=== PATIENT | male | born 1965 | race Caucasian/White ===

== ENCOUNTER → 2016-07-14 | Outpatient (CLI) | payer OTHER ==
--- NOTE | ~2016-07-14 | MR113 ---
[facility] A Service of [facility] RADIOLOGY TEXT RESULTS PATIENT: DESTINEE PAREKH [facility] : 63 UNIT #: [id number] AGE: [address]: Coretta Elizondo MD SEX: M ORDER DR: [id number] [facility] [address] [place], [place] [address] [id number] O MR#: [id number] Acc #: [id number] NAME: DESTINEE PAREKH : 1965 SEX: M STUDY DATE/TIME: 07/14/2016 18:00 UNIT: [facility] ROOM: STUDY DESCRIPTION: MR Lumbar Wo Contrast Attending Physician: Coretta Elizondo M.D. Referring Physician: Coretta Elizondo M.D. Ordering Physician: Coretta Elizondo M.D. Primary Care Physician: Coretta Elizondo M.D. MRI CENTER REPORT This report is preliminary unless electronic signature is present. EXAM Lumbar spine MRI without HISTORY L4 nerve root compression. Low back pain 2 years. Cannot walk more than 50 feet without intense pain per patient. No known injury. Patient complains of burning and tingling into both thighs. COMMENT MRI of the lumbar spine performed without contrast using routine 1.5T imaging technique. No previous. There is about 6.0 mm of degenerative retrolisthesis of L5 on S1 secondary to loss of intervertebral disc height. The intervertebral discs are desiccated in general and there is severe loss of disc height at the L5-S1 level with some [id number] predominately type 1 marrow endplate degenerative change. Multiple small Schmorl's nodes are seen, milder loss of intervertebral disc height otherwise. The conus medullaris terminates at L1-2 and is normal. At L1-2, there is mild facet degenerative change on the left. There is a minor concentric disc bulge with a more focal component to the left side posterolaterally. There is no central canal stenosis. There is mild left inferior foraminal narrowing. At L2-3, there is mild facet degenerative change bilaterally. Mild concentric disc bulge with minimal inferior foraminal narrowing and no canal stenosis. At L3-4, mild concentric disc bulge. Mild facet hypertrophy. Mild effacement of the anterior thecal sac. Mild mass effect on left greater STS. [facility] A Service of [facility] RADIOLOGY TEXT RESULTS PATIENT: DESTINEE PAREKH LOCATION: [facility] : 63 UNIT #: [id number] AGE: [address]: Coretta Elizondo MD SEX: M ORDER DR: than right lateral recess and central canal stenosis. Only minor inferior foraminal narrowing. At L4-5, there is mild bilateral facet degenerative change. Minor concentric disc bulge with a small focal central protrusion component and annular fissure. Mild central canal stenosis. Subtle mass effect on the bilateral-lateral recesses. Minor inferior foraminal narrowing. At L5-S1, [id number] facet degenerative change bilaterally, concentric moderate desiccated disc bulging with a superimposed anterior extrusion and essentially broad posterior protrusion/extrusion. This is more prominent to the left than the right of midline posteriorly and extends into the inferior foramina bilaterally. There is oqxs-wa-farcrcgt right, ivqbqpnl-ay-nwcwzx left side foraminal narrowing and mild central canal stenosis with mass effect upon left greater than right lateral recess expected location of the S1 roots. IMPRESSION Multilevel lumbar degenerative change detailed above. This is most significant appearing radiographically at L5-S1 where combination of findings result in mild canal stenosis with mass effect on the left greater than right lateral recess as well as impingement upon the left greater than right foramen. See [id number] discussion and correlate with radicular symptoms. Dictated by... Neida Butts M.D. THIS IS AN ELECTRONICALLY VERIFIED REPORT Neida Butts M.D. at 07/15/2016 5:03 PM BRIGITTE/tere TD: 07/15/2016 08:50 JOB #: [id number] MRI [facility]ENTER REPORT Page 1 of 1 COPY
== END | disposition home or self-care (01) ==
LOC: CMRI 17:23
DX: M48.06 Spinal stenosis, lumbar region (principal); M51.86 Other intervertebral disc disorders, lumbar region; M47.896 Other spondylosis, lumbar region
CPT/HCPCS: 72148